=== PATIENT | male | born 1995 | race Hispanic/Latino ===

== ENCOUNTER 2019-05-23 08:33 | Outpatient (CLI) | payer OTHER ==
--- NOTE | 2019-05-23 10:53 | RAD ---
LEFT FOOT 2 VIEWS: Date: 05/23/2019 HISTORY: [place]th[place], [place] evaluation. FINDINGS: Arthrosis and degenerative changes. Small dorsal osteophyte at the level of the mid foot. Small calca merlin plantar enthesophyte. IMPRESSION: No significant acute process. Mild degenerative and osteoarthrosis changes. POS: [facility]
--- NOTE | 2019-05-23 10:54 | RAD ---
RIGHT FOOT 2 VIEWS: Date: 05/23/2019 HISTORY: Arthritis, [place] evaluation. FINDINGS: Very small inferior calcaneal plantar enthesophyte. No acute fracture or dislocation. IMPRESSION: Mild degenerative change. POS: [facility]
== END 2019-05-23 08:34 | disposition home or self-care (01) ==
LOC: BICRAD 08:33
PROVIDERS: ATTEND Orthopaedic Surgery
DX: M19.071 Primary osteoarthritis, right ankle and foot (principal); M19.072 Primary osteoarthritis, left ankle and foot